=== PATIENT | female | born 1980 | race Caucasian/White ===

== ENCOUNTER 2020-07-20 09:57 | Emergency (ER) | payer OTHER, SELFPAY ==
[~2020-07-20] VITALS: Ht 175.3 cm; Wt 83.9 kg
[2020-07-20 09:59] VITALS: Ht 175.3 cm; Wt 83.9 kg
[2020-07-20 11:09] VITALS: BP 116/71
== END 2020-07-20 11:09 | disposition home or self-care (01) ==
LOC: ED 09:57
DX: U07.1 COVID-19 (principal)
CPT/HCPCS: U0003